=== PATIENT | female | born 1935 | race Two or more races ===

== ENCOUNTER 2023-11-15 14:51 | Inpatient (IN) | payer OTHER ==
[~2023-11-15] VITALS: Ht 162.6 cm; Wt 59.0 kg
[2023-11-15] MEDS ORDERED: GLUMETZA500 MG PO (15:11)
[2023-11-15] MEDS ORDERED: ZESTRIL40 M1 PO (15:12)
[2023-11-15] MEDS ORDERED: AMLODIPINE-OLM1 EAC2 PO (15:12)
[2023-11-15 17:28] LABS: URINE APPEARANCE Clear; URINE BACTERIA 40.2 uL (0.0-1933); URINE BILIRRUBIN Negative (NEGATIVE); URINE BLOOD Negative; URINE COLOR Yellow; URINE LEUKOCYTE Negative; URINE NITRATE Negative; URINE PROTEIN 30 (NEGATIVE); URINE RBC 4.4 uL (0.0-20.8); URINE WBC 5.8 uL (0.0-23.2)
[2023-11-15 17:30] LABS: URINE GLUCOSE 250 MG/DL (NEGATIVE)
[2023-11-15 17:33] LABS: HEMATOCRIT 41.1 % (36.0-45.00); HEMOGLOBIN 13.4 g/dL (12.0-15.00); MEAN CELL VOLUME 81.6 fL (80.00-100.00); MEAN CORPUSCULAR HEMOGLOBIN 26.5 pg (27.00-32.0); MEAN CORPUSCULAR HGB CONC 32.5 g/dl (32.0-36.0); PLATELET COUNT 222 K/uL (150-450); RED BLOOD COUNT 5.04 M/uL (4.00-6.00); RED CELL DISTRIBUTION WIDTH 14.2 % (11.5-14.5)
[2023-11-15 18:18] LABS: ALBUMIN 3.9 gm/dL (3.4-5.0); BILIRUBIN TOTAL 0.64 mg/dL (0.3-1.2); CALCIUM 9.9 mg/dL (8.5-10.1); CREATININE SERUM 0.7 mg/dL (0.55-1.02); GFR 78.79; GLOBULINA 3.7 G/DL (2.4-3.5); POTASSIUM 4.03 mEq/L (3.5-5.1); TOTAL PROTEIN 7.6 gm/dL (6.4-8.2)
[2023-11-16 00:57] LABS: INR 1.09; PARTIAL THROMBOPLASTIN TIME 25.9 SECONDS (22.0-34.0); PROTHROMBIN TIME 11.4 SECONDS (9.0-11.5)
[2023-11-16 16:43] LABS: URINE APPEARANCE Clear; URINE BILIRRUBIN Negative (NEGATIVE); URINE BLOOD Large; URINE COLOR Yellow; URINE GLUCOSE Negative (NEGATIVE); URINE LEUKOCYTE Trace; URINE NITRATE Negative; URINE UROBILINOGEN 0.2 E.U./dl
[2023-11-16 16:46] LABS: URINE BACTERIA 49.1 uL (0.0-1933); URINE EPITHELIAL CELLS 2.4 uL (0.0-38.8); URINE WBC 11.1 uL (0.0-23.2)
[2023-11-16 16:54] LABS: URINE PROTEIN 100 (NEGATIVE)
[2023-11-16 21:37] LABS: CALCIUM 8.8 mg/dL (8.5-10.1); CHOL HDL RATIO 1.6 (0-5.0); CREATININE SERUM 0.81 mg/dL (0.55-1.02); GFR 66.58; POTASSIUM 3.65 mEq/L (3.5-5.1)
== END 2023-11-17 11:46 | disposition home or self-care (01) | DRG 390 ==
LOC: ER 14:52 → SURG 23:55
PROVIDERS: Emergency Medicine; General Practice; Internal Medicine Infectious Disease; ADMIT Internal Medicine; ATTEND Internal Medicine
PROC: BW21YZZ Computerized Tomography (CT Scan) of Abdomen and Pelvis using Other Contrast (ICD-10-PCS; principal; 2023-11-15)
DX: K56.51 Intestinal adhesions [bands], with partial obstruction (principal); E86.0 Dehydration; K52.9 Noninfective gastroenteritis and colitis, unspecified; I10 Essential (primary) hypertension; E11.9 Type 2 diabetes mellitus without complications; Z79.4 Long term (current) use of insulin; Z20.822 Contact with and (suspected) exposure to COVID-19; E78.5 Hyperlipidemia, unspecified